=== PATIENT | female | born 1955 | race Hispanic/Latino ===

== ENCOUNTER 2024-09-26 07:09 | Day surgery (SDC) | payer OTHER ==
[~2024-09-26] VITALS: Ht 157.5 cm; Wt 79.8 kg
[2024-09-26] VITALS (10 sets, daily range): BP systolic 96–163; BP diastolic 50–91; PULSE 63–88; RESP 12–20; TEMP 97–97.9
[2024-09-26] MEDS ORDERED: MIRT7.5T11 PO (09:22)
[2024-09-26] MEDS ORDERED: DIPH-1150 PO (09:22)
[2024-09-26] MEDS ORDERED: AMOX1TAB16 PO (09:22)
[2024-09-26] MEDS ORDERED: CLON0.1T PO (09:22)
[2024-09-26] MEDS ORDERED: ROSUVASTATIN PO (09:22)
[2024-09-26] MEDS ORDERED: MECLIZINE PO (09:22)
[2024-09-26] MEDS ORDERED: OLMESARTAN PO (09:22)
[2024-09-26] MEDS ORDERED: proPOFol 10 MG/ML 20ML VIAL IV ONE (09:24)
[2024-09-26] MEDS: 0.9%NACL 1000ML 1,000 ML IV ONE (09:37)
--- NOTE | 2024-09-26 10:47 | NUR ---
FULL AND COMPLETE DISCHARGE INSTRUCTIONS PROVIDED BOTH VERBALLY AND IN WRITING. ALL QUESTIONS ANSWERED. VOICED UNDERSTANDING TO GI PROCEDURE AND FOLLOW UP. PIV REMOVED WITH CATHETER TIP INTACT. W/C WITH FAMILY TO POV TO HOME.
== END 2024-09-26 10:48 | disposition home or self-care (01) ==
LOC: ENDO 07:09
PROVIDERS: ATTEND Surgery
DX: K57.20 Diverticulitis of large intestine with perforation and abscess without bleeding (principal); K21.9 Gastro-esophageal reflux disease without esophagitis; K60.1 Chronic anal fissure; K59.00 Constipation, unspecified; R93.89 Abnormal findings on diagnostic imaging of other specified body structures; N82.3 Fistula of vagina to large intestine; E78.00 Pure hypercholesterolemia, unspecified; E66.9 Obesity, unspecified; Z90.710 Acquired absence of both cervix and uterus; Z98.890 Other specified postprocedural states; Z80.8 Family history of malignant neoplasm of other organs or systems; Z88.8 Allergy status to other drugs, medicaments and biological substances; Z68.31 Body mass index [BMI] 31.0-31.9, adult; Z96.659 Presence of unspecified artificial knee joint; Z85.038 Personal history of other malignant neoplasm of large intestine; Z79.899 Other long term (current) drug therapy; Z79.2 Long term (current) use of antibiotics; Z98.0 Intestinal bypass and anastomosis status
CPT/HCPCS: 45331; J7030; J2704; A4620; A4215; A4223; A7002; A4222; A4221; A4663; A4606; 45330; J3490